=== PATIENT | female | born 1985 | race African-American/Black ===

== ENCOUNTER 2016-12-14 14:49 | Emergency (ER) | payer SELFPAY ==
[~2016-12-14] VITALS: Ht 162.6 cm; Wt 100.0 kg
[~2016-12-14 14:49] MED LIST: AMOXICILLIN500 MG OR; AMOXICILLIN500 MG PO; ANTIVERT PO; AUGMENTIN OR; BACTRIM DS1 TAB PO; CEPHALEXIN500 MG PO; CIPRO500 MG OR; CIPROFLOXACN500 MG PO; COLACE100 MG OR; DEPO-PROVER150 MG/M1 IM; DULCOLAX SS100 MG OR; EFFEXOR75 MG OR; FERATAB300 MG OR; FERROUS SULF325 M1 OR; FLEXERIL PO; HYDROCHLOROT25 MG PO; IBUPROFEN200 M2 OR; IBUPROFEN600 MG OR; LAMICTAL200 MG PO; LEXAPRO20 MG OR; LOPRESSOR50 MG OR; LORTAB5 OR; MACRODANTIN100 MG OR; MECLIZINE12.5 M1 PO; MECLIZINE25 MG PO; MEDDOSEPAK PO; METO50TA52 PO; MICROZIDE OR; NAPROSYN375 MG PO; NAPROSYN500 MG PO; ORTHO TRI-CY OR; PRE-NATAL OR; PRILOSEC20 MG/CAP PO; SEROQUEL50 MG OR; TOPROL XL50 MG PO; TRILEPTAL150 M1 OR; ULTRAM50 M1 PO; XANAX0.5 MG PO; ZITHROMAX250 MG OR; ZITHROMAX250 MG PO; ZOFRAN ODT4 MG OR; ZOFRAN ODT4 MG PO; ZOFRAN4 MG OR; ZOFRAN4 MG/TAB PO; ZYRTEC10 MG PO
[2016-12-14] MEDS ORDERED: PENICILLN VK500 MG PO (15:08)
[2016-12-14] MEDS ORDERED: MECLIZINE25 MG PO (15:08)
[2016-12-14] MEDS ORDERED: ZOFRAN ODT4 MG PO (15:08)
[2016-12-14 16:00] VITALS: BP 146/92
== END 2016-12-14 16:41 | disposition home or self-care (01) | DRG 149 ==
LOC: ED 14:49
DX: R42 Dizziness and giddiness (principal); J02.9 Acute pharyngitis, unspecified; R11.0 Nausea

== ENCOUNTER 2017-01-17 23:38 | Emergency (ER) | payer OTHER ==
[~2017-01-17] VITALS: Ht 162.6 cm; Wt 112.0 kg
[~2017-01-17 23:38] MED LIST changes: +PENICILLN VK500 MG PO
[2017-01-18] MEDS ORDERED: ZOFRAN ODT4 MG PO (00:35)
[2017-01-18] MEDS ORDERED: AMOXICILLIN500 MG PO (00:35)
[2017-01-18 00:50] VITALS: BP 136/89
== END 2017-01-18 00:50 | disposition home or self-care (01) | DRG 153 ==
LOC: ED 23:38
DX: J02.9 Acute pharyngitis, unspecified (principal); I10 Essential (primary) hypertension; R11.10 Vomiting, unspecified

== ENCOUNTER 2017-02-18 10:01 | Emergency (ER) | payer SELFPAY ==
[~2017-02-18] VITALS: Ht 162.6 cm; Wt 95.0 kg
[2017-02-18] MEDS ORDERED: IMODIUM2 MG PO (10:40)
[2017-02-18] MEDS ORDERED: CIPROFLOXACN500 MG PO (10:40)
[2017-02-18 11:13] LABS: INFLUENZA A NONE DETECTED (NONE DETECT)
[2017-02-18 11:14] LABS: INFLUENZA B NONE DETECTED (NONE DETECT)
[2017-02-18] MEDS ORDERED: ZOFRAN ODT4 MG PO (11:17)
[2017-02-18 11:24] VITALS: BP 146/79
== END 2017-02-18 11:35 | disposition home or self-care (01) | DRG 392 ==
LOC: ED 10:01
PROVIDERS: Emergency Medicine
DX: K52.9 Noninfective gastroenteritis and colitis, unspecified (principal); I10 Essential (primary) hypertension

== ENCOUNTER 2017-04-25 11:13 | Emergency (ER) | payer SELFPAY ==
[~2017-04-25] VITALS: Ht 162.6 cm; Wt 100.0 kg
[~2017-04-25 11:13] MED LIST changes: +IMODIUM2 MG PO
[2017-04-25] MEDS ORDERED: IMODIUM2 MG PO (11:30)
[2017-04-25 11:40] VITALS: BP 129/78
== END 2017-04-25 11:40 | disposition home or self-care (01) | DRG 866 ==
LOC: ED 11:13
DX: B34.9 Viral infection, unspecified (principal); R53.1 Weakness; R19.7 Diarrhea, unspecified

== ENCOUNTER 2017-05-28 00:51 | Emergency (ER) | payer OTHER ==
[~2017-05-28] VITALS: Ht 162.6 cm; Wt 112.4 kg
[2017-05-28] MEDS ORDERED: METOPROL TAR25 M1 PO ×3 (01:07→01:29)
[2017-05-28 01:33] VITALS: BP 136/83
== END 2017-05-28 01:35 | disposition home or self-care (01) | DRG 951 ==
LOC: ED 00:51
DX: Z76.0 Encounter for issue of repeat prescription (principal); I10 Essential (primary) hypertension; R42 Dizziness and giddiness

== ENCOUNTER 2017-05-31 07:31 | Emergency (ER) | payer OTHER ==
[~2017-05-31] VITALS: Ht 162.6 cm; Wt 95.0 kg
[~2017-05-31 07:31] MED LIST changes: +METOPROL TAR25 M1 PO
[2017-05-31] MEDS ORDERED: LOPRESSOR50 M1 PO (07:39)
[2017-05-31 08:42] LABS: HEMATOCRIT 28.1 % (37.0-47.0); HEMOGLOBIN 8.2 g/dl (12.0-16.0); IMMATURE GRANULOCYTES 0.2 % (0.0-1.0); MEAN CELL VOLUME 69.7 fL CALC (80.0-100.0); MEAN CORPUSCULAR HGB 20.3 pG CALC (26.0-32.0); MEAN CORPUSCULAR HGB CONC 29.2 g/L CALC (32.0-36.0); NEUT# 7.88 thou/uL (2.00-7.15); RED BLOOD COUNT 4.03 mill/uL (4.20-5.60); RED CELL DISTRI WIDTH 19.7 % (11.5-15.5)
[2017-05-31 09:05] LABS: ALBUMIN 3.7 g/dL (3.2-5.0); ALKALINE PHOSPHATASE 79 u/l (38-126); AMYLASE 51 u/l (30-110); ANION GAP 16 (6-22 (CALC)); BILIRUBIN, TOTAL 0.4 mg/dL (0.0-1.4); BUN 9 mg/dL (7-17); BUN/CREATININE RATIO 11 (12-20 (CALC)); CALCIUM 9.5 mg/dL (8.4-10.2); CARBON DIOXIDE 24 mmol/l (22-30); CHLORIDE 108 mmol/l (95-108); CREATININE 0.8 mg/dL (0.5-1.0); GFR > 60 ML/MIN (>=60 (CALC)); GFR FOR AFR.AMER. > 60 ML/MIN (>=60 (CALC)); GLUCOSE 87 mg/dL (65-105); LIPASE 61 u/l (23-300); POTASSIUM 4.2 mmol/l (3.5-5.1); SGOT/AST 17 u/l (14-36); SGPT/ALT 29 u/l (9-52); SODIUM 144 mmol/l (137-146); TOTAL PROTEIN 7.6 g/dL (6.3-8.2)
[2017-05-31 09:17] LABS: MYOGLOBIN 17 ng/mL (0 - 62)
[2017-05-31 10:51] LABS: URINE BILIRUBIN - DIPSTICK NEGATIVE (NEGATIVE); URINE BLOOD DIPSTICK LARGE (NEGATIVE); URINE CLARITY CLEAR; URINE COLOR YELLOW; URINE GLUCOSE - DIPSTICK NEGATIVE (NEGATIVE); URINE KETONE NEGATIVE (NEGATIVE); URINE LEUK ESTERASE NEGATIVE (NEGATIVE); URINE NITRITE - DIPSTICK NEGATIVE (Negative); URINE PH 6.5 (4.5-8.0); URINE PROTEIN - DIPSTICK TRACE mg/dL (NEG-TRACE); URINE UROBILINOGEN - DIPSTICK 0.2 E.U./dL (0.2)
[2017-05-31 11:11] LABS: BARBITURATES NEGATIVE (NEGATIVE); COCAINE NEGATIVE (NEGATIVE); METHADONE NEGATIVE (NEGATIVE); OXCYCODONE NEGATIVE (NEGATIVE); TETRAHYDROCANNABIONOL NEGATIVE (NEGATIVE); TRICYLIC ANTIDEPRESSANTS NEGATIVE (NEGATIVE)
[2017-05-31 11:13] LABS: URINE RBC TNTC RBC/hpf (0-5); URINE SQUAMOUS EPITHELIAL CELL FEW EPI/hpf (0-FEW)
[2017-05-31 11:21] VITALS: BP 132/73
== END 2017-05-31 11:29 | disposition home or self-care (01) | DRG 103 ==
LOC: ED 07:31
PROVIDERS: Emergency Medicine
DX: R51 Headache (principal); I10 Essential (primary) hypertension

== ENCOUNTER 2017-08-03 19:05 | Emergency (ER) | payer SELFPAY ==
[~2017-08-03] VITALS: Ht 162.6 cm; Wt 111.4 kg
[~2017-08-03 19:05] MED LIST changes: +LOPRESSOR50 M1 PO
[2017-08-03] MEDS ORDERED: ZITHROMAX250 MG PO (19:30)
[2017-08-03 19:42] VITALS: BP 149/74
== END 2017-08-03 19:45 | disposition home or self-care (01) | DRG 153 ==
LOC: ED 19:05
DX: J06.9 Acute upper respiratory infection, unspecified (principal); H92.02 Otalgia, left ear; R05 Cough

== ENCOUNTER 2017-09-17 22:41 | Emergency (ER) | payer OTHER ==
[~2017-09-17] VITALS: Ht 162.6 cm; Wt 112.2 kg
[2017-09-17 23:54] LABS: HEMATOCRIT 27.5 % (37.0-47.0); IMMATURE GRANULOCYTES 0.3 % (0.0-1.0); MEAN CELL VOLUME 70.5 fL CALC (80.0-100.0); MEAN CORPUSCULAR HGB 20.5 pG CALC (26.0-32.0); MEAN CORPUSCULAR HGB CONC 29.1 g/L CALC (32.0-36.0); NEUT# 7.45 thou/uL (2.00-7.15); RED BLOOD COUNT 3.9 mill/uL (4.20-5.60); RED CELL DISTRI WIDTH 19.9 % (11.5-15.5); URINE BILIRUBIN - DIPSTICK NEGATIVE (NEGATIVE); URINE BLOOD DIPSTICK TRACE-INTACT (NEGATIVE); URINE COLOR YELLOW; URINE KETONE TRACE mg/dL (NEGATIVE); URINE LEUK ESTERASE NEGATIVE (NEGATIVE); URINE NITRITE - DIPSTICK NEGATIVE (Negative); URINE PH 6.5 (4.5-8.0); URINE PROTEIN - DIPSTICK NEGATIVE (NEG-TRACE); URINE SPECIFIC GRAVITY 1.025
[2017-09-17 23:58] LABS: URINE CLARITY CLOUDY; URINE GLUCOSE - DIPSTICK NEGATIVE (NEGATIVE)
[2017-09-18] LABS: BARBITURATES NEGATIVE (NEGATIVE); COCAINE NEGATIVE (NEGATIVE); METHADONE NEGATIVE (NEGATIVE); OXCYCODONE NEGATIVE (NEGATIVE); TETRAHYDROCANNABIONOL NEGATIVE (NEGATIVE); TRICYLIC ANTIDEPRESSANTS NEGATIVE (NEGATIVE)
[2017-09-18 00:08] LABS: INFLUENZA A NONE DETECTED (NONE DETECT); INFLUENZA B NONE DETECTED (NONE DETECT)
[2017-09-18 00:22] LABS: ALBUMIN 3.6 g/dL (3.2-5.0); ALKALINE PHOSPHATASE 79 u/l (38-126); ANION GAP 16 (6-22 (CALC)); BILIRUBIN, TOTAL 0.3 mg/dL (0.0-1.4); BUN 13 mg/dL (7-17); BUN/CREATININE RATIO 16 (12-20 (CALC)); CALCIUM 9.7 mg/dL (8.4-10.2); CARBON DIOXIDE 23 mmol/l (22-30); CHLORIDE 108 mmol/l (95-108); CREATININE 0.8 mg/dL (0.5-1.0); GFR > 60 ML/MIN (>=60 (CALC)); GFR FOR AFR.AMER. > 60 ML/MIN (>=60 (CALC)); GLUCOSE 95 mg/dL (65-105); POTASSIUM 4.1 mmol/l (3.5-5.1); SGOT/AST 26 u/l (14-36); SGPT/ALT 32 u/l (9-52); SODIUM 143 mmol/l (137-146)
[2017-09-18 00:33] LABS: INTERNATIONAL NORMALIZED RATIO 0.9 RATIO (0.7-1.3); PROTHROMBIN TIME 10.3 SECONDS (9.0-12.5)
[2017-09-18] MEDS ORDERED: AMOXICILLIN500 MG PO (00:33)
[2017-09-18] MEDS ORDERED: CLARITIN10 M1 PO (00:33)
[2017-09-18 00:47] VITALS: BP 129/73
== END 2017-09-18 00:55 | disposition home or self-care (01) | DRG 153 ==
LOC: ED 22:41
PROVIDERS: Emergency Medicine
DX: J02.0 Streptococcal pharyngitis (principal); R04.2 Hemoptysis; M79.1 Myalgia

== ENCOUNTER 2017-10-16 06:34 | Emergency (ER) | payer OTHER ==
[~2017-10-16] VITALS: Ht 162.6 cm; Wt 95.4 kg
[~2017-10-16 06:34] MED LIST changes: +CLARITIN10 M1 PO
[2017-10-16 08:28] LABS: HEMATOCRIT 29.6 % (37.0-47.0); HEMOGLOBIN 8.6 g/dl (12.0-16.0); IMMATURE GRANULOCYTES 0.6 % (0.0-1.0); MEAN CELL VOLUME 69.6 fL CALC (80.0-100.0); MEAN CORPUSCULAR HGB 20.2 pG CALC (26.0-32.0); MEAN CORPUSCULAR HGB CONC 29.1 g/L CALC (32.0-36.0); NEUT# 6.97 thou/uL (2.00-7.15); RED BLOOD COUNT 4.25 mill/uL (4.20-5.60); RED CELL DISTRI WIDTH 19.9 % (11.5-15.5)
[2017-10-16 08:45] LABS: ANION GAP 16 (6-22 (CALC)); BUN 7 mg/dL (7-17); BUN/CREATININE RATIO 10 (12-20 (CALC)); CARBON DIOXIDE 21 mmol/l (22-30); CHLORIDE 111 mmol/l (95-108); CREATININE 0.7 mg/dL (0.5-1.0); GFR > 60 ML/MIN (>=60 (CALC)); GFR FOR AFR.AMER. > 60 ML/MIN (>=60 (CALC)); POTASSIUM 4.2 mmol/l (3.5-5.1); SODIUM 144 mmol/l (137-146)
[2017-10-16] MEDS ORDERED: ZPAK PO (09:13)
[2017-10-16] MEDS ORDERED: ZOFRAN4 M1 PO (09:13)
[2017-10-16 09:15] VITALS: BP 127/76
== END 2017-10-16 09:20 | disposition home or self-care (01) | DRG 153 ==
LOC: ED 06:34
PROVIDERS: Family Medicine
DX: J06.9 Acute upper respiratory infection, unspecified (principal); R11.0 Nausea; I10 Essential (primary) hypertension; R05 Cough; R09.89 Other specified symptoms and signs involving the circulatory and respiratory systems

== ENCOUNTER 2017-11-10 19:17 | Emergency (ER) | payer SELFPAY ==
[~2017-11-10] VITALS: Ht 162.6 cm; Wt 114.0 kg
[~2017-11-10 19:17] MED LIST changes: +ZOFRAN4 M1 PO; +ZPAK PO
[2017-11-10 20:16] LABS: INFLUENZA A NONE DETECTED (NONE DETECT); INFLUENZA B NONE DETECTED (NONE DETECT)
[2017-11-10] MEDS ORDERED: CEPHALEXIN500 MG PO (20:30)
[2017-11-10 20:38] VITALS: BP 151/87
== END 2017-11-10 20:38 | disposition home or self-care (01) | DRG 153 ==
LOC: ED 19:17
PROVIDERS: Emergency Medicine
DX: J02.9 Acute pharyngitis, unspecified (principal); R05 Cough; R50.9 Fever, unspecified

== ENCOUNTER 2017-12-18 00:38 | Emergency (ER) | payer SELFPAY ==
[~2017-12-18] VITALS: Ht 162.6 cm; Wt 115.4 kg
[2017-12-18 02:06] LABS: HEMATOCRIT 27.5 % (37.0-47.0); HEMOGLOBIN 8.1 g/dl (12.0-16.0); IMMATURE GRANULOCYTES 0.5 % (0.0-1.0); MEAN CELL VOLUME 68.9 fL CALC (80.0-100.0); MEAN CORPUSCULAR HGB 20.3 pG CALC (26.0-32.0); MEAN CORPUSCULAR HGB CONC 29.5 g/L CALC (32.0-36.0); NEUT# 8.82 thou/uL (2.00-7.15); RED BLOOD COUNT 3.99 mill/uL (4.20-5.60); RED CELL DISTRI WIDTH 19.1 % (11.5-15.5)
[2017-12-18 02:32] LABS: ALBUMIN 3.7 g/dL (3.2-5.0); ALKALINE PHOSPHATASE 118 u/l (38-126); ANION GAP 19 (6-22 (CALC)); BILIRUBIN, TOTAL 0.3 mg/dL (0.0-1.4); BUN 10 mg/dL (7-17); BUN/CREATININE RATIO 14 (12-20 (CALC)); CARBON DIOXIDE 24 mmol/l (22-30); CHLORIDE 104 mmol/l (95-108); CREATININE 0.8 mg/dL (0.5-1.0); GFR > 60 ML/MIN (>=60 (CALC)); GFR FOR AFR.AMER. > 60 ML/MIN (>=60 (CALC)); POTASSIUM 3.5 mmol/l (3.5-5.1); SGOT/AST 25 u/l (14-36); SGPT/ALT 37 u/l (9-52); SODIUM 143 mmol/l (137-146)
[2017-12-18 02:42] LABS: URINE BILIRUBIN - DIPSTICK NEGATIVE (NEGATIVE); URINE BLOOD DIPSTICK MODERATE (NEGATIVE); URINE COLOR YELLOW; URINE GLUCOSE - DIPSTICK NEGATIVE (NEGATIVE); URINE KETONE NEGATIVE (NEGATIVE); URINE LEUK ESTERASE NEGATIVE (NEGATIVE); URINE NITRITE - DIPSTICK NEGATIVE (Negative); URINE PH 5.5 (4.5-8.0); URINE PROTEIN - DIPSTICK TRACE mg/dL (NEG-TRACE); URINE SPECIFIC GRAVITY >=1.030; URINE UROBILINOGEN - DIPSTICK 0.2 E.U./dL (0.2)
[2017-12-18 02:47] LABS: BARBITURATES NEGATIVE (NEGATIVE); COCAINE NEGATIVE (NEGATIVE); METHADONE NEGATIVE (NEGATIVE); OXCYCODONE NEGATIVE (NEGATIVE); TETRAHYDROCANNABIONOL NEGATIVE (NEGATIVE); TRICYLIC ANTIDEPRESSANTS NEGATIVE (NEGATIVE)
[2017-12-18 02:49] LABS: URINE CLARITY HAZY
[2017-12-18 02:57] LABS: URINE BACTERIA MODERATE hpf; URINE RBC 0-2 RBC/hpf (0-5); URINE SQUAMOUS EPITHELIAL CELL MODERATE EPI/hpf (0-FEW); URINE WBC 0-2 WBC/hpf (0-5)
[2017-12-18 02:58] LABS: URINE MUCUS FEW hpf (NONE-FEW)
[2017-12-18 03:22] VITALS: BP 140/75
== END 2017-12-18 03:22 | disposition home or self-care (01) | DRG 310 ==
LOC: ED 00:38
PROVIDERS: Emergency Medicine
DX: R00.2 Palpitations (principal); D64.9 Anemia, unspecified; D72.829 Elevated white blood cell count, unspecified; I10 Essential (primary) hypertension; R42 Dizziness and giddiness

== ENCOUNTER 2017-12-25 12:48 | Emergency (ER) | payer MEDICAID ==
[~2017-12-25] VITALS: Ht 162.6 cm; Wt 109.0 kg
[2017-12-25 13:58] LABS: HEMATOCRIT 29.4 % (37.0-47.0); HEMOGLOBIN 8.4 g/dl (12.0-16.0); IMMATURE GRANULOCYTES 0.3 % (0.0-1.0); MEAN CELL VOLUME 70.2 fL CALC (80.0-100.0); MEAN CORPUSCULAR HGB CONC 28.6 g/L CALC (32.0-36.0); NEUT# 9.31 thou/uL (2.00-7.15); RED BLOOD COUNT 4.19 mill/uL (4.20-5.60); RED CELL DISTRI WIDTH 19.4 % (11.5-15.5); URINE BILIRUBIN - DIPSTICK NEGATIVE (NEGATIVE); URINE BLOOD DIPSTICK TRACE-INTACT (NEGATIVE); URINE COLOR YELLOW; URINE GLUCOSE - DIPSTICK NEGATIVE (NEGATIVE); URINE KETONE NEGATIVE (NEGATIVE); URINE LEUK ESTERASE NEGATIVE (NEGATIVE); URINE NITRITE - DIPSTICK NEGATIVE (Negative); URINE PH 5.5 (4.5-8.0); URINE PROTEIN - DIPSTICK NEGATIVE (NEG-TRACE); URINE SPECIFIC GRAVITY <=1.005; URINE UROBILINOGEN - DIPSTICK 0.2 E.U./dL (0.2)
[2017-12-25 13:59] LABS: URINE CLARITY CLEAR
[2017-12-25 14:13] LABS: ANION GAP 18 (6-22 (CALC)); BUN 7 mg/dL (7-17); BUN/CREATININE RATIO 10 (12-20 (CALC)); CARBON DIOXIDE 24 mmol/l (22-30); CHLORIDE 103 mmol/l (95-108); CREATININE 0.7 mg/dL (0.5-1.0); GFR > 60 ML/MIN (>=60 (CALC)); GFR FOR AFR.AMER. > 60 ML/MIN (>=60 (CALC)); POTASSIUM 4.1 mmol/l (3.5-5.1); SODIUM 141 mmol/l (137-146)
[2017-12-25] MEDS ORDERED: FERROUS SULF325 M3 PO (15:29)
[2017-12-25] MEDS ORDERED: AUGMENTIN875TAB PO (15:29)
[2017-12-25 15:50] VITALS: BP 141/74
== END 2017-12-25 15:50 | disposition home or self-care (01) | DRG 153 ==
LOC: ED 12:48
PROVIDERS: Family Medicine
DX: J02.9 Acute pharyngitis, unspecified (principal); D64.9 Anemia, unspecified; I10 Essential (primary) hypertension; R13.10 Dysphagia, unspecified; R05 Cough

== ENCOUNTER 2018-01-22 19:29 | Emergency (ER) | payer OTHER ==
[~2018-01-22] VITALS: Ht 162.6 cm; Wt 113.6 kg
[~2018-01-22 19:29] MED LIST changes: +AUGMENTIN875TAB PO; +FERROUS SULF325 M3 PO
[2018-01-22] MEDS ORDERED: METOPROL TAR25 MG PO (20:04)
[2018-01-22 20:13] LABS: HEMATOCRIT 28.7 % (37.0-47.0); HEMOGLOBIN 8.3 g/dl (12.0-16.0); IMMATURE GRANULOCYTES 0.4 % (0.0-1.0); MEAN CELL VOLUME 68.5 fL CALC (80.0-100.0); MEAN CORPUSCULAR HGB 19.8 pG CALC (26.0-32.0); MEAN CORPUSCULAR HGB CONC 28.9 g/L CALC (32.0-36.0); NEUT# 9.35 thou/uL (2.00-7.15); RED BLOOD COUNT 4.19 mill/uL (4.20-5.60); RED CELL DISTRI WIDTH 19.4 % (11.5-15.5)
[2018-01-22 20:15] LABS: URINE BILIRUBIN - DIPSTICK NEGATIVE (NEGATIVE); URINE BLOOD DIPSTICK MODERATE (NEGATIVE); URINE COLOR YELLOW; URINE GLUCOSE - DIPSTICK NEGATIVE (NEGATIVE); URINE KETONE NEGATIVE (NEGATIVE); URINE NITRITE - DIPSTICK NEGATIVE (Negative); URINE PROTEIN - DIPSTICK NEGATIVE (NEG-TRACE); URINE SPECIFIC GRAVITY 1.015; URINE UROBILINOGEN - DIPSTICK 0.2 E.U./dL (0.2)
[2018-01-22 20:17] LABS: URINE CLARITY HAZY; URINE LEUK ESTERASE MODERATE (NEGATIVE)
[2018-01-22 20:23] LABS: URINE SQUAMOUS EPITHELIAL CELL MANY EPI/hpf (0-FEW)
[2018-01-22 20:26] LABS: ALBUMIN 3.9 g/dL (3.2-5.0); ALKALINE PHOSPHATASE 100 u/l (38-126); ANION GAP 16 (6-22 (CALC)); BILIRUBIN, TOTAL 0.3 mg/dL (0.0-1.4); BUN 8 mg/dL (7-17); BUN/CREATININE RATIO 11 (12-20 (CALC)); CARBON DIOXIDE 26 mmol/l (22-30); CHLORIDE 103 mmol/l (95-108); CREATININE 0.8 mg/dL (0.5-1.0); GFR > 60 ML/MIN (>=60 (CALC)); GFR FOR AFR.AMER. > 60 ML/MIN (>=60 (CALC)); POTASSIUM 4.2 mmol/l (3.5-5.1); SGOT/AST 36 u/l (14-36); SGPT/ALT 35 u/l (9-52); SODIUM 140 mmol/l (137-146); TOTAL PROTEIN 8.6 g/dL (6.3-8.2)
[2018-01-22 20:38] LABS: MYOGLOBIN 13 ng/mL (0 - 62)
[2018-01-22] MEDS ORDERED: TORADOL PO (23:06)
[2018-01-22 23:26] VITALS: BP 128/72
== END 2018-01-22 23:35 | disposition home or self-care (01) | DRG 206 ==
LOC: ED 19:29
PROVIDERS: Family Medicine
DX: M94.0 Chondrocostal junction syndrome [Tietze] (principal); D72.829 Elevated white blood cell count, unspecified; I10 Essential (primary) hypertension
CPT/HCPCS: Q9967

== ENCOUNTER 2018-07-22 10:43 | Emergency (ER) | payer OTHER ==
[~2018-07-22] VITALS: Ht 162.6 cm; Wt 100.0 kg
[~2018-07-22 10:43] MED LIST changes: +METOPROL TAR25 MG PO; +TORADOL PO
[2018-07-22 11:43] LABS: HEMATOCRIT 29.3 % (37.0-47.0); HEMOGLOBIN 8.3 g/dl (12.0-16.0); IMMATURE GRANULOCYTES 0.6 % (0.0-5.0); MEAN CELL VOLUME 69.3 fL CALC (80.0-100.0); MEAN CORPUSCULAR HGB 19.6 pG CALC (26.0-32.0); MEAN CORPUSCULAR HGB CONC 28.3 g/L CALC (32.0-36.0); NEUT# 10.29 thou/uL (2.00-7.15); RED BLOOD COUNT 4.23 mill/uL (4.20-5.60); RED CELL DISTRI WIDTH 21.1 % (11.5-15.5)
[2018-07-22 12:02] LABS: BUN 10 mg/dL (7-17); BUN/CREATININE RATIO 13 (12-20 (CALC)); CARBON DIOXIDE 22 mmol/l (22-30); CHLORIDE 108 mmol/l (95-108); CREATININE 0.8 mg/dL (0.5-1.0); GFR > 60 ML/MIN (>=60 (CALC)); GFR FOR AFR.AMER. > 60 ML/MIN (>=60 (CALC)); SODIUM 140 mmol/l (137-146)
[2018-07-22 12:15] LABS: ANION GAP 14 (6-22 (CALC)); POTASSIUM 4.2 mmol/l (3.5-5.1)
[2018-07-22 13:38] VITALS: BP 131/62
== END 2018-07-22 13:49 | disposition home or self-care (01) ==
LOC: ED 10:43
PROVIDERS: Family Medicine
DX: R55 Syncope and collapse (principal); Y93.82 Activity, spectator at an event; Y92.414 Local residential or business street as the place of occurrence of the external cause

== ENCOUNTER 2018-09-13 13:06 | Emergency (ER) | payer OTHER ==
[~2018-09-13] VITALS: Ht 162.6 cm; Wt 100.0 kg
[2018-09-13] MEDS ORDERED: FLEXERIL5 M1 PO (14:02)
[2018-09-13 14:19] VITALS: BP 130/82
== END 2018-09-13 14:19 | disposition home or self-care (01) ==
LOC: ED 13:06
DX: S39.011A Strain of muscle, fascia and tendon of abdomen, initial encounter (principal); I10 Essential (primary) hypertension; X58.XXXA Exposure to other specified factors, initial encounter; M79.10 Myalgia, unspecified site; R22.2 Localized swelling, mass and lump, trunk

== ENCOUNTER 2018-10-07 07:16 | Emergency (ER) | payer OTHER ==
[~2018-10-07] VITALS: Ht 162.6 cm; Wt 100.0 kg
[~2018-10-07 07:16] MED LIST changes: +FLEXERIL5 M1 PO
[2018-10-07] MEDS ORDERED: PENICILLN VK500 M1 PO (07:51)
[2018-10-07 08:01] VITALS: BP 138/89
== END 2018-10-07 08:05 | disposition home or self-care (01) ==
LOC: ED 07:16
DX: J02.0 Streptococcal pharyngitis (principal); I10 Essential (primary) hypertension; R50.9 Fever, unspecified; R05 Cough

== ENCOUNTER 2018-10-28 16:23 | Emergency (ER) | payer OTHER ==
[~2018-10-28] VITALS: Ht 162.6 cm; Wt 100.0 kg
[~2018-10-28 16:23] MED LIST changes: +PENICILLN VK500 M1 PO
[2018-10-28 17:37] LABS: HEMATOCRIT 27.9 % (37.0-47.0); IMMATURE GRANULOCYTES 0.5 % (0.0-5.0); MEAN CELL VOLUME 68.6 fL CALC (80.0-100.0); MEAN CORPUSCULAR HGB 19.7 pG CALC (26.0-32.0); MEAN CORPUSCULAR HGB CONC 28.7 g/L CALC (32.0-36.0); NEUT# 13.9 thou/uL (2.00-7.15); RED BLOOD COUNT 4.07 mill/uL (4.20-5.60); RED CELL DISTRI WIDTH 19.9 % (11.5-15.5)
[2018-10-28 17:49] LABS: ANION GAP 15 (6-22 (CALC)); BUN 9 mg/dL (7-17); BUN/CREATININE RATIO 12 (12-20 (CALC)); CARBON DIOXIDE 25 mmol/l (22-30); CHLORIDE 102 mmol/l (95-108); CREATININE 0.8 mg/dL (0.5-1.0); GFR > 60 ML/MIN (>=60 (CALC)); GFR FOR AFR.AMER. > 60 ML/MIN (>=60 (CALC)); POTASSIUM 3.7 mmol/l (3.5-5.1); SODIUM 139 mmol/l (137-146)
[2018-10-28 18:31] LABS: URINE BILIRUBIN - DIPSTICK NEGATIVE (NEGATIVE); URINE BLOOD DIPSTICK TRACE-INTACT (NEGATIVE); URINE GLUCOSE - DIPSTICK NEGATIVE (NEGATIVE); URINE KETONE NEGATIVE (NEGATIVE); URINE LEUK ESTERASE NEGATIVE (NEGATIVE); URINE NITRITE - DIPSTICK NEGATIVE (Negative); URINE PROTEIN - DIPSTICK NEGATIVE (NEG-TRACE); URINE UROBILINOGEN - DIPSTICK 0.2 E.U./dL (0.2)
[2018-10-28 18:32] LABS: URINE COLOR DK. YELLOW
[2018-10-28 19:29] VITALS: BP 140/60
== END 2018-10-28 19:30 | disposition home or self-care (01) ==
LOC: ED 16:23
PROVIDERS: Family Medicine
DX: R00.2 Palpitations (principal); I10 Essential (primary) hypertension; F41.9 Anxiety disorder, unspecified

== ENCOUNTER 2019-09-25 09:01 | Emergency (ER) | payer OTHER ==
[2019-09-25 10:39] VITALS: BP 150/77
[2019-09-25] MEDS ORDERED: AMOXICILLIN500 M2 PO (10:45)
== END 2019-09-25 10:48 | disposition home or self-care (01) ==
LOC: ED 09:01
DX: J02.9 Acute pharyngitis, unspecified (principal); I10 Essential (primary) hypertension

== ENCOUNTER 2019-10-17 | Emergency (ER) | payer OTHER ==
[~2019-10-17] MED LIST changes: +AMOXICILLIN500 M2 PO
[2019-10-17] MEDS ORDERED: AMOXIL400 MG/5 M PO (11:24)
[2019-10-17] MEDS ORDERED: TAMIFLU SUSP 6MG/ML PO (11:24)
== END 2019-10-17 11:35 | disposition home or self-care (01) ==
DX: J11.1 Influenza due to unidentified influenza virus with other respiratory manifestations (principal); I10 Essential (primary) hypertension

== ENCOUNTER 2022-04-26 11:41 | Emergency (ER) | payer OTHER ==
[~2022-04-26] VITALS: Ht 162.6 cm; Wt 86.3 kg
[~2022-04-26 11:41] MED LIST changes: +AMOXIL400 MG/5 M PO; +TAMIFLU SUSP 6MG/ML PO
[2022-04-26 11:53] VITALS: BP 119/63
[2022-04-26 12:01] VITALS: BP 118/67
[2022-04-26 12:16] VITALS: BP 118/65
[2022-04-26 12:31] VITALS: BP 116/69
[2022-04-26 12:46] VITALS: BP 119/70
[2022-04-26] MEDS ORDERED: TAM75CAP PO (12:58)
[2022-04-26 13:01] VITALS: BP 135/77
== END 2022-04-26 13:11 | disposition home or self-care (01) ==
LOC: ED 11:41
DX: J11.1 Influenza due to unidentified influenza virus with other respiratory manifestations (principal); U07.1 COVID-19